=== PATIENT | female | born 1940 | race Caucasian/White ===

== ENCOUNTER 2017-04-09 16:42 | Inpatient (IN) | payer MEDICARE, OTHER ==
[~2017-04-09] VITALS: Ht 147.3 cm; Wt 71.2 kg
--- NOTE | ~2017-04-09 | CON ---
[place], [place] REPORT OF CONSULTATION NAME: CHIRAG DOMINGO [facility] #: [id number] UNIT #: [id number] ROOM: 309 DOCTOR: KINJAL CALVO ED.D (BARBARA) BIRTHDATE: [birth year] DOS: 04/10/2017 HISTORY OF PRESENT ILLNESS: The patient is a 76-year-old female referred by Dr. Marques for competency evaluation. At the present time, this patient is on the [facility]. She is a , her having approximately 17 years ago. She does have 1 son and 1 daughter. Her son, Chilo, is her durable power of trial attorney for healthcare. She has recently been a resident at [facility] in [place], [place]. ____ house physician at [facility] at the present time. Her medical history is pertinent for major neurocognitive disorder, GERD, hyperlipidemia, hypertension, diabetes mellitus, osteoarthritis, hypothyroidism, and depression. This patient has no significant substance abuse issues. She was awake, alert and oriented to the fact that she is in [place]. She did not know the name of the facility. She did not know what year it is, and stated it was 2021. She also stated that she was 72 years old. Her short and long-term memory are markedly impaired. I spoke at length with her daughter, Nicole Guy. According to the daughter, the patient has been having difficulty with dementia for several years. This was exacerbated when her medications were changed at [facility]. She was quite agitated at [facility] and became very aggressive. At the present time, she is not aggressive, but is still quite confused. In my opinion, this patient is clearly not competent to make informed healthcare decisions and all decisions should be made by her durable power of trial attorney for healthcare, who is her son. DIAGNOSES: 1. Major neurocognitive disorder, Alzheimer disease. 2. Major depressive disorder, recurrent. RECOMMENDATIONS: In my opinion, all decisions should be made by her healthcare power of trial attorney, her son, Chilo Domingo. Thank you very much for this consult. KINJAL CALVO ED.D CM:CONSTR:REPORT OF CONSULTATION 1608 04/10/17 2204 interface CLEMENTINE MARQUES MD
--- NOTE | ~2017-04-09 | PR ---
[place], [place] PROGRESS NOTE NAME: CHIRAG RODRIGUEZ UNIT #: [id number] ROOM: 309 DOCTOR: CRISS RODRIGUEZ,JENESN BIRTHDATE: [birth year] DOS: CHIEF COMPLAINT: "I don't feel good." SUBJECTIVE: The patient is seen this morning, sitting in dining area, did engage in small conversation, but did not make much sense. Still depressed and confused. Did tell that she slept okay last night did not eat her breakfast this morning. As per nurses report, she has not engaged in activities, but has been calmer. MENTAL STATUS EXAMINATION: The patient is alert, awake, oriented to person, not to place or time. Very poor eye contact, labile with blunted affect, is calmer this morning. No epi or hypomania and no overt psychosis. PLAN: The patient needs further stabilization, so we shall continue her medicines, continue her care and shall try to engage her in verma milieu as she is more stable. JENSEN KAHN MD CM:PNTRANS 1003 [id number] JENSEN KAHN MD 04/15/17 1342 interface
--- NOTE | ~2017-04-09 | PR ---
[place], [place] PROGRESS NOTE NAME: CHIRAG RODRIGUEZ UNIT #: [id number] ROOM: 309 DOCTOR: DISHA AMAYA,MY BIRTHDATE: [birth year] DOS: 04/13/2017 CHIEF COMPLAINT: "I feel sick." SUMMARY OF THE VISIT: The patient was interviewed in the dining area where she was having breakfast. Said she feels sick and did not sleep well last night; however, she had 10 plus hours sleep per her RN. According to staff, her mood appears more depressed since yesterday afternoon, increasingly isolating herself, although she participated in the group milieu. No acute overnight events reported. MENTAL STATUS: The patient was alert and oriented to self and not to time. The patient was confused. She did not respond much to questions today. Mood moderately depressed and barely responds to any questions today. Short-term memory was poor. There is no evidence of delusion or hallucination. PLAN: We will continue Aricept 10 mg daily. We will increase Namenda to 10 mg b.i.d. We will also renew Ativan p.r.n. We will continue to attend patient in individual and group activity with the ultimate plan is to be discharged once she is psychiatrically stable. MY DO DISHA CLEMENTINE MARQUES MD CM:PNTRANS [id number] TONIO GAUTHIER DO 04/13/17 1321 interface
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
--- NOTE | ~2017-04-09 | PR ---
[place], [place] PROGRESS NOTE NAME: CHIRAG RODRIGUEZ UNIT #: [id number] ROOM: 309 DOCTOR: CLEMENTINE MARQUES MD BIRTHDATE: [birth year] DOS: 04/16/2017 CHIEF COMPLAINT: "I know I should eat, I am just not hungry." SUMMARY OF THE VISIT: The patient was interviewed as she sat eating or not eating her breakfast. She had her entire breakfast tray in front of her. She was just moving it around on the plate. She reports that she slept well, but is just not hungry. She is willing to try a milkshake at least for something in between meals. Mood does seem to be still depressed and affect is rather flat and blunted. She lacks energy and motivation. MENTAL STATUS: She is alert and oriented to person, possibly place, although it is doubtful, certainly not time. Mood does seem to be depressed. Affect is flat, blunted with a constricted range. There are no symptoms of hypomania or epi. There are no overt auditory or visual hallucinations, delusions or paranoia. Short-term memory is exceedingly poor. PLAN: I will go ahead and discontinue her Trintellix because in some cases this will actually decrease appetite. Instead, I will start her on Remeron 15 mg at bedtime, not only to impact positively on her appetite, but to combat the depressive symptomatology. I will renew her Ativan in case she requires p.r.n. intervention and order Ensure milk shakes to augment her nutritional status. Engage in individual and verma milieu activity with the ultimate plan to return back to her long-term care facility when stable. CLEMENTINE MARQUES MD CM:PNTRANS 5 5 CLEMENTINE MARQUES MD 04/16/17926 interface
--- NOTE | ~2017-04-09 | PR ---
[place], [place] PROGRESS NOTE NAME: CHIRAG RODRIGUEZ UNIT #: [id number] ROOM: 309 DOCTOR: DISHA AMAYA,MY BIRTHDATE: [birth year] DOS: 04/12/2017 CHIEF COMPLAINT: "Feels disgusted." SUMMARY OF THE VISIT: The patient was interviewed in her room. Said she feels disgusted because of her knee pain. She does not remember if there was any trauma or injury to the area. Dr. Urban also was in yesterday to see her related to right knee pain, on 04/11/2017. The patient also complains of "funny feeling at inferior chest, epigastric region." The patient is unable to provide details but said it could feel like nausea and fluttering. Said she has been here since Sunday, which is true. pause where she was asked questions and at times she would repeat questions again without providing any answers even after multiple attempts. Today, speaks in more complete sentences. MENTAL STATUS: The patient was alert and oriented to self, and time to certain extent. The patient was confused. Her responses were still fragmented at times with multiple pauses but her sentences were more completed. She has difficulty processing information still but shows some improvement. Short-time memory was poor. PLAN: Continue Aricept 10 mg every day, increase Namenda to 10 mg in the morning and 5 at night. We will continue to attempt to engage the patient in individual and verma milieu activities with the ultimate plan is to be discharge when the patient is more psychiatrically stable. MY GAUTHIER, DO CLEMENTINE MARQUES MD CM:PNLEROY 1103 [id number] MY DISHA DO 04/12/17 1236 interface
--- NOTE | ~2017-04-09 | PR ---
[place], [place] PROGRESS NOTE NAME: CHIRAG RODRIGUEZ UNIT #: [id number] ROOM: 309 DOCTOR: DISHA AMAYA,MY BIRTHDATE: [birth year] DOS: 04/11/2017 CHIEF COMPLAINT: "Good morning." SUMMARY OF THE VISIT: The patient was interviewed in the dining room while having breakfast. Said she slept well. Does not remember how long she has been here. Her response is slow with multiple long pauses, yet still not responds to questions asked of her most of the time. The patient did attend group as well as participated yesterday. The patient showed no signs of agitation or anger since yesterday. She was talkative, laughing and smiling throughout the group per staff record. MENTAL STATUS: The patient was alert and oriented to self, not to time. The patient was pleasantly confused. Her responses were still short and fragmented with long pauses. She showed great difficulty processing information even with just simple conversation. Short-term memory was extremely poor. PLAN: Increase Aricept to 10 mg daily from 5 mg. Increase Namenda to 5 mg b.i.d. We will continue to engage the patient in individual and verma milieu activity with the ultimate plan is to be discharged when she is psychiatrically stable. MY DO DISHA CLEMENTINE MARQUES MD CM:PNLEROY TONIO GAUTHIER DO 04/12/17 0739 interface
--- NOTE | ~2017-04-09 | CON ---
[place], [place] REPORT OF CONSULTATION NAME: CHIRAG RODRIGUEZ UNIT #: [id number] ROOM: 309 DOCTOR: ROSE MARY RODRIGUEZ,NING BIRTHDATE: [birth year] DOS: 04/17/2017 RAPID RESPONSE REPORT. Rapid response was called because of the patient was unresponsive and not interacting. The staff at the facility stated that the patient was actually fine until about 45 minutes before they found her unresponsive. She was admitted to the hospital Behavior Unit on the 09 of April with a brief psychotic episode. The nurses reported to me that she was cooperative, but in the last few days, had been eating less and not interacting. They also stated that she was in the dining room and then went back to her bedroom and it was then that they found her unresponsive. There had been no recent history of cough, congestion, difficulty with breathing, complaints of chest pain. No nausea or vomiting. In reviewing the admission data, she was known to have hypothyroidism, major depressive disorder, hiatal hernia, hyperlipidemia, osteoarthritis, and D deficiency. She also has a history of gastroesophageal reflux, hypertension, non-insulin dependent diabetes and recurrent anxiety. I see no history of cognitive difficulties and in reviewing the data report on this patient except for some bizarre thoughts and speech, she seemed to comprehend instructions and knew the staff. The nurse that was at the bedside was not able to give any further information. On examination, when I asked the patient to open her eyes, she opened her eyes. I noticed a subtle right facial droop. Her skin was warm and dry, but she was slightly cyanotic and was ventilating poorly. PHYSICAL EXAMINATION: VITAL SIGNS: The vital signs last taken last evening showed the temperature to be 97.9, pulse 65, respirations 18, and blood pressure 116/72. HEENT: There was no gaze preference and patient was nonverbal. NECK: Supple, No adenopathy or thyromegaly appreciated. CHEST: Symmetrical and nontender. LUNGS: Clear to auscultation and percussion. CARDIOVASCULAR: Regular and rhythmic. No murmurs, gallops, rubs or clicks appreciated. ABDOMEN: Slightly rounded, soft, nontender. Bowel sounds present in all 4 quadrants. No masses, no organomegaly. EXTREMITIES: Mild edema. CENTRAL NERVOUS SYSTEM: In examination of the nervous system, there was mild right facial weakness. The muscle tone in the lower extremities appeared to be slightly increased. Plantar reflexes equivocal on the left but downgoing on the right. The reason for the unresponsive state was suspicious for an intracranial event, dehydration, reaction to medication. I discussed with the resident staff that the patient be transferred to the ICU, a stat brain scan be obtained to rule out an acute stroke, EKG, stat electrolytes, cardiac enzymes, drug screen, CBC, and supportive care until those results could be obtained. There was no change in her status when she was moved to the ICU. ASSESSMENT: Unresponsive, consider acute neurological event. The 12-lead EKG [place], [place] REPORT OF CONSULTATION NAME: CHIRAG RODRIGUEZ UNIT #: [id number] ROOM: [facility] DOCTOR: NING BAZZI MD BIRTHDATE: [birth year] did not show any acute changes suggestive of acute myocardial infarction. PLAN: The patient will be transferred to the ICU to the hospitalist service and ongoing evaluation is in progress. Condition is guarded and the family should be notified by the resident staff. NING BAZZI MD CM:CONSTR:REPORT OF CONSULTATION 1125 04/17/17 1208 interface
--- NOTE | ~2017-04-09 | PR ---
[place], [place] PROGRESS NOTE NAME: [id number] #: [id number] ROOM: 309 DOCTOR: CRISS RODRIGUEZ,JENSEN BIRTHDATE: [birth year] DOS: 04/14/2017 CHIEF COMPLAINT: "I feel shaky." SUBJECTIVE: The patient is a 76-year-old lady, resident of [facility], admitted here because of increasing combativeness, agitation, self-injurious behavior and also depression with confusion and psychosis. She started on Aricept, Namenda, Depakote. Her behavior has improved, is seen today sitting in dining area, could not hold any meaningful conversation. She could not tell where she is or what day it is, seemed confused and did not want to continue the conversation and dozed off and closed her eyes. As per nurses report, she has slept okay last night, did not eat much of her breakfast and appears to be depressed and confused. MENTAL STATUS EXAMINATION: The patient is oriented to self only, not to place or time, still confused. Poor eye contact. Speech, low tone. Mood depressed with flat affect. No overt psychosis, no epi or hypomania. Short term memory is very poor. PLAN: The patient needs further stabilization. At present, we shall continue her medicines and add Trintellix 10 mg and risperidone 0.25 mg b.i.d. to help her mood and confusion and we shall try and engage her in verma milieu as she is more stable. JENSEN KAHN MD CM:PNTRANS 0940 [id number] JENSEN KAHN MD 04/14/17 1547 interface
[2017-04-09] MEDS ORDERED: CYMBALTA60 MG PO (18:01)
[2017-04-09] MEDS ORDERED: BISCOLAX10 M1 R (18:01)
[2017-04-09] MEDS ORDERED: ATIVAN0.5 MG PO (18:01)
[2017-04-09] MEDS ORDERED: CYMBALTA30 MG PO (18:02)
[2017-04-09] MEDS ORDERED: GLUCOPHAGE500 MG PO (18:02)
[2017-04-09] MEDS ORDERED: LEVOXYL88 MCG PO (18:02)
[2017-04-09] MEDS ORDERED: ZESTRIL20 MG PO (18:03)
[2017-04-09] MEDS ORDERED: OMEPRAZOLE40 MG PO (18:03)
[2017-04-09] MEDS ORDERED: TOPROL XL100 MG PO (18:03)
[2017-04-09] MEDS ORDERED: VITAMIN D50000 UNIT PO (18:04)
--- NOTE | 2017-04-09 20:10 | NUR ---
CHIRAG RODRIGUEZ a 76 year old F admitted via ambulance from the ADMITTING as a emergency 72 hr. hold admission. Arrived on unit at 2010PM. ALLERGIES: METFORMAN, AVANDIA, AND BENICAR. Vital signs are: 97.8-63-20 138/76. CLIENT IS PINK SLIPPED SO SHE DID NOT SIGN ADMISSION PAPER The client signed the following forms with stated understanding: Authorization For The Release of Medical Information, Clothing List, Consent and Release Forms/Receipt of Rights, Acknowledgement of Advance Directive Information, Behavioral Health Consent Form, and Informed Consent of Medications. Admitted under the services [facility] A search was conducted and hazardous articles were removed. Client was oriented to the unit. BECKY GONZALEZ
[2017-04-09 22:30] VITALS: BP 138/76
--- NOTE | 2017-04-10 00:23 | NUR ---
DR BREWER NOTIFIED OF ADMISSION. FULL UPDATE PROVIDED
--- NOTE | 2017-04-10 02:50 | NUR ---
REFUSED MIDNIGHT MEDICATION.. APPEARS TO BE RESTING QUIET UNLESS DISTURBED TO TURN OR GET PO FLUIDS. IV FLUIDS INFUSING WITHOUT DIFFICULTY
--- NOTE | 2017-04-10 05:38 | NUR ---
24 HR chart check completed.
--- NOTE | 2017-04-10 06:24 | NUR ---
INCONTINENT OF LARGE AMOUNT OF URINE. CLEANED UP AND GOWN CHANGED. CLIENT VERY CONFUSED AND DISORIENTED ABOUT EVENTS LAST NIGHT. REVIEWED EVENTS BUT SHOWING SIGNS OF SHORT TERM MEMORY DEFICIT. UNABLE TO ANSWER HER AGE OR YEAR. KEEPS REPEATING "DADDY IS GOING TO BE SO UPSET". EMOTIONAL SUPPORT PROVIDED.
--- NOTE | 2017-04-10 06:48 | NUR ---
PT HAS BEEN OBSERVED ON Q 15 MIN CHECKS & HAS SLEPT QUIETLY THROUGHOUT THE SHIFT PAST 0030. WAS AWAKE THIS AM @ 0625 & WAS INCONTINENT OF A LARGE AMOUNT OF URINE. COMPLIANT WITH TAKING AM MEDICATIONS WHOLE. PT STATED, "WHATS GOING ON? THIS AIN'T ME". SHORT & NURSING HOME MEMORY DEFICITS, ALERT TO PERSON ONLY. ALSO STATED "MY DADDY IS GONNA BE SO UPSET". PT UNABLE TO STATE HER AGE OR IF HER FATHER WAS ALIVE OR . SHE HAD STATED ON ADMISSION THAT HER PARENTS WERE . CONFUSION PRESENT & PT EXHIBITS A PUZZLED LOOK ON HER FACE.
[2017-04-10 07:57] VITALS: BP 140/50
[2017-04-10 08:04] LABS: BASO % 0.7 % (0.0-1.0); EOS # 0.1 10*3/uL (0.0-0.4); EOS % 1.4 % (1.0-4.0); HEMATOCRIT 34.7 % (37.0-47.0); HEMOGLOBIN 11.4 g/dl (12.0-16.0); LYMPH # 1.3 10*3/uL (1.3-4.4); LYMPH % 23.8 % (27.0-41.0); MEAN CELL VOLUME 87.4 fl (81.0-99.0); MEAN CORPUSCULAR HGB 28.7 pg (27.0-31.0); MEAN CORPUSCULAR HGB CONC 32.9 g/dl (33.0-37.0); MONO # 0.6 10*3/uL (0.1-1.0); MONO % 10.1 % (3.0-9.0); NEUT # 3.6 10*3/uL (2.3-7.9); NEUT % 63.6 % (47.0-73.0); PLATELET COUNT AUTOMATED 208 10*3/uL (130-400); RED BLOOD COUNT 3.97 10*6/uL (4.10-5.10); RED CELL DISTRI WIDTH 13.4 % (0-14.5); WHITE BLOOD COUNT 5.6 10*3/uL (4.8-10.8)
--- NOTE | 2017-04-10 08:25 | NUR ---
PHYSICAL THERAPY Nursing screen received. Orders received as well. Thank you. Nori Farah,PT
[2017-04-10 08:35] LABS: ALBUMIN 3.4 gm/dl (3.1-4.5); ALKALINE PHOSPHATASE 85 U/L (45-117); BUN 12 mg/dl (7-24); CHLORIDE 107 mmol/L (98-107); CHOLESTEROL 153 mg/dL (<200); CREATININE 0.66 mg/dL (0.55-1.02); HDL CHOLESTEROL 76 mg/dl (40-60); LDL CHOLESTEROL 66 mg/dL (9-159); POTASSIUM 4.2 mmol/L (3.5-5.1); SGOT/AST 12 IU/L (3-35); SGPT/ALT 14 U/L (12-78); SODIUM 144 mmol/L (136-145); TOTAL PROTEIN 6.7 gm/dL (6.4-8.2); TRIGLYCERIDES 53 mg/dl (<150); VLDL CHOLESTEROL 11 mg/dL (6-40)
[2017-04-10 09:23] LABS: VITAMIN D, 25-HYDROXY 25.3 ng/mL (30-100)
[2017-04-10 09:34] LABS: BILIRUBIN NEGATIVE (NEGATIVE); BLOOD TRACE-LYSED (NEGATIVE); CLARITY CLEAR (CLEAR); COLOR YELLOW (YELLOW); GLUCOSE NEGATIVE (NEGATIVE); KETONE NEGATIVE (NEGATIVE); LEUKO ESTERASE TRACE (NEGATIVE); NITRITE NEGATIVE (NEGATIVE); SPECIFIC GRAVITY <= 1.005 (1.005-1.030); UROBILINOGEN 0.2 E.U./dl (0.2-1.0)
--- NOTE | 2017-04-10 10:03 | NUR ---
TREATMENT TEAM WAS HELD WITH THE FOLLOWING: DR. MARQUES, SHIRT FINISHER,RN,AT,SW. DR. MARQUES WOULD LIKE PT TO SEE DR. CALVO FOR COMPOTENCY EVAL AND GUARDIANSHIP APPLICATION.
--- NOTE | 2017-04-10 10:36 | NUR ---
PT RIGHT KNEE IS SWOLLEN, RED, WARM TO THE TOUCH, PT C/O PAIN IN THE KNEE, PT HAD A PREVIOUS FALL HAS BRUISING. NOTIFED DR LAY
--- NOTE | 2017-04-10 10:37 | NUR ---
SHASHI SPOKE WITH SHASHI HEAD AT [facility]. PT IS IN THE ASSISTED LIVING. FAMILY VERY INVOLVED IN HER CARE. DTR YOHANNES FLOREZ [phone] AND SON EVELINA RODRIGUEZ [phone]. SHASHI EXPLAIN THAT DR MARQUES ORDERED COMPOTENCY EVAL WITH DR. CALVO FOR GUARDIANSHIP. SHASHI RIOS LET DR. MARQUES KNOW THAT THERE IS FAMILY INVOLVEMENT. SHASHI WILL FAX AN UPDATE.
--- NOTE | 2017-04-10 10:41 | NUR ---
PRN 1 MG PO ATIVAN GIVEN, PT IS WRINGING HER HANDS, C/O ANXIETY, NERVOUS SHAKING, PT TOOK WITH NO PROBLEM
--- NOTE | 2017-04-10 10:50 | NUR ---
NOTIFIED DR CALVO OFFICE OF CONSULT
[2017-04-10 11:05] LABS: BACTERIA 1+; EPITHELIAL CELLS 15-20; WBC 16-20 wbc/hpf (0-5)
--- NOTE | 2017-04-10 11:13 | NUR ---
Goals,Exercise,& [place] [employer] Patient attended group today but did not paticipate. Patient was the only one attending and told me she was very nervous and anxious. Patient did not want to do any of the planned activities,she just wanted to talk. Patient and I did deep breathing exercises several times to help her to calm down. Patient wanted to get dressed and lay down for a while. As there was no one available I took patient to her room with the assistance of her nurse,washed and dressed and put her to bed to rest. Patient seemed calmer and less anxious
--- NOTE | 2017-04-10 11:27 | NUR ---
SW completed psychosocial assessment with Pt. Pt wants to return home to [facility].
--- NOTE | 2017-04-10 13:40 | NUR ---
ACTIVITIES BROUGHT OUT A PIECE OF THE PATIENTS TOOTH THE PATIENT SPIT OUT A PICE OF HER TOOTH. IT WAS PLACED IN A BAGGIE PUT IN THE PATIENTS BELONGINS
--- NOTE | 2017-04-10 14:55 | NUR ---
PHYSICAL THERAPY PAtient at group at this time. Thank you for this referral. Nori Farah,PT
--- NOTE | 2017-04-10 15:47 | NUR ---
PHYSICAL THERAPY PAtient evaluated on 3, full evaluatiomn to follow. Continue with PT as per plan of care with fall, right knee eccymosis, errythemia amd edema, unit three and recent change in mental status precautions. May require SNF for d/c planning, pending prior level of function. PAtient is moderate complexity via chart review, tests and evaluation: 99652. Thank you for this referral. Nori Farah,PT
--- NOTE | 2017-04-10 16:37 | NUR ---
NOTIFIED DR SINGLETARY OF PT RESULTS OF MRI
--- NOTE | 2017-04-10 17:02 | NUR ---
NOTIFIED DR SINGLETARY OF PT BLOOD CULTURE RESULTS FROM [facility]- PT HAS STAPHYLOCOCCUS SPECIES NOT S. AUREUS,. ANOTHER CULTURE IS BEING ORDERED INCASE THIS CULTURE WAS CONTAMINATED
[2017-04-10 20:00] VITALS: BP 118/63
--- NOTE | 2017-04-10 23:03 | NUR ---
24 HR chart check completed.
--- NOTE | 2017-04-11 05:46 | NUR ---
PT HAS BEEN OBSERVED ON Q 15 MIN CHECKS & HAS SLEPT QUIETLY THROUGHOUT THE SHIFT PAST 2144.
[2017-04-11 07:30] VITALS: BP 108/81
--- NOTE | 2017-04-11 07:36 | NUR ---
04/10/17 Afternoon Reminiscing/[place] [employer] Patient did attend group as well as participated. Patient was pleasant, but confused. Patient showed no signs of agitation or anger. Patient was talkative,laughing and smiling throughout group
--- NOTE | 2017-04-11 08:22 | NUR ---
PHYSICAL THERAPY Danay seen this AM 1:1 for her therapy session, Pt was supine in bed. Pt having right knee edema. Start with gentle rom and Ex to bilateral LE with cueing and is very slow with this and just work to tolerance this my first time. Transfer supine/sit MOD A X 1, sitting balance CGA X 1, X 6 min. Then sit/stand and up on wheeled walker standing balance MOD A X 1. Gait 45' X 1, one sitting rest. Followed by another gait with W/W 25' X 1, with much verbal cueing for gait, walker, turn safety, Pt is confused. Danay did well this her first time with me. Pt taken down to the day room for breakfast at this time in her wheelchair and body alarm on. ALEXSANDRA ADAMES MUSEUM EXHIBIT TECHNICIAN.
[2017-04-11 08:24] VITALS: BP 110/64
[2017-04-11 10:58] VITALS: BP 133/57
--- NOTE | 2017-04-11 11:14 | NUR ---
TREATMENT TEAM WAS HELD WITH THE FOLLOWING: DR. MARQUES, RESIDENT, RN, AT,AND SW. SW REPORTED THAT PT IS IN ASSISTED LIVING AT [facility]. FACILITY WILLING TO TAKE HER BACK. SON AND DTR ARE INVOLVED WITH HER CARE. DR. CALVO DEEMED PT INCOMPOTENT. DR. PORTILLO WANTS GUARDIANSHIP FILED FIRST THEN CIVIL COMMITTMENT IF NEEDED.
--- NOTE | 2017-04-11 11:50 | NUR ---
Goals,Exercise & [place] Patient was in attendence for group but did not participate. Patient complained of not feeling well and nurse was notified. Patient was taken from the room when DR came to see her.
--- NOTE | 2017-04-11 12:51 | NUR ---
Danay is alert to person only when assessed this morning. She does later acknowledge that she knows that she is in the hospital. Noted to exhibit some hesitancy in her responses to questions asked by staff. When assessed this morning her right hand was noted to be reddened and warm to touch. She reports that "it feels funny." N.P notified of Danay's complaints. Danay later voiced c/o chest and epigastric discomfort which she rated as an "8." N.P was notified and did come to the unit to evaluate her. Orders received. Danay was initially hesitant to complete testing, but did comply with encouragement and education provided by staff. Noted to be anxious @ times and support has been provided. Energy level is low. Appetite is fair. Exhibits some difficulty with processing information. Daughter, Nicole, did telephone the unit to inquire regarding her mother's condition and was updated on current medications. After testing completed Danay did request to rest in bed in her room. Refer to [facility] flowsheet for specific monitoring. Also refer to process intervention screen for vital signs recorded on this day. No overt s/s of sensory disturbances noted. Memory impairment present.
--- NOTE | 2017-04-11 17:44 | NUR ---
Dr. Urban also in to see Danay related to right knee injury she previously received. She discussed treatment option with Danay, however, @ this time Danay voices ambivalent feelings regarding this. Noted to exhibit some anxiousness @ mealtime and voiced some paranoid delusions regarding coming to the hospital. States that she does not remember events @ longterm and stated, "Those people are lying. This is bad."
[2017-04-11 19:59] VITALS: BP 142/64
--- NOTE | 2017-04-11 21:49 | NUR ---
PT HAS REMAINED IN BED SINCE THE ONSET OF THE SHIFT. VOICED NO PHYSICAL COMPLAINTS. DENIED ANY FURTHER PAIN. COMPLIANT WITH HS MEDICATIONS CRUSHED & MIXED WITH APPLESAUCE. CONFUSION CONTINUES. ALERT TO PERSON ONLY. PT STATED, "WHATEVER HAPPENED?........THIS IS TERRIBLE.................HAVE YOU SEEN MY ?.............IS MOM HERE?............OH I JUST REMEMBERED, SHES '. HAS REMAINED IN HER ROOM IN HER BED THIS EVENING RESTING QUIETLY.
--- NOTE | 2017-04-11 21:56 | NUR ---
24 HR chart check completed.
--- NOTE | 2017-04-11 22:27 | NUR ---
24 HR chart check completed.
--- NOTE | 2017-04-12 06:54 | NUR ---
PT HAS BEEN OBSERVED ON Q 15 MIN CHECKS & HAS REMAINED IN BED SINCE THE ONSET OF THE SHIFT. HAS SLEPT QUIETLY THROUGHOUT THE SHIFT PAST 1999 WITH 2 BRIEF AWAKENINGS DUE TO BEING INCONTINENT OF URINE.
[2017-04-12 08:31] VITALS: BP 143/68
--- NOTE | 2017-04-12 10:33 | NUR ---
SHASHI SPOKE WITH DTR YOHANNES ABOUT [facility]. BROTHER CHITO HAS [facility] THAT WAS DRAWN UP BY AN ATTRONEY. YOHANNES WILL GET A COY FROM HER BROTHER AND HAVE [employer] FAX IT TO SHASHI BY 4:17PM. YOHANNES AND CHITO WANT PT TO COMPLETE HER TREATMENT BEFORE HEADING BACK TO [facility].
--- NOTE | 2017-04-12 10:36 | NUR ---
SHASHI SPOKE WITH ADILENE AT [facility] TO MAKE SURE THAT FACILITY [facility] HAVE A COPY OF [facility]. ADILENE DOES NOT HAVE COPY. WHILE SHASHI WAS WAS ON HOLD, YOHANNES CALLED AND STATED THAT SHE SPOKE WITH HER BROTHER AND IS GOING TO HIS HOUSE TO GET ADN WILL HAV FACILITY FAX IT TO [facility]. SHASHI INFORMED ADILENE THAT YOHANNES WAS GETTTING DPOA[facility] FROM CHITO'S HOUSE AND BRINGING IT TO FACILITY TO FAX IT TO US. ADILENE DID CHITOT HAVE A COY AND WILL FAX IT TO FACILITY WHEN SHE RECEIVES IT.
--- NOTE | 2017-04-12 12:02 | NUR ---
PHYSICAL THERAPY Patient was supine in bed this am when approached by therapist and reports moderate chest / sternal area pain, possibly heartburn most of the morning. Upon consult with floor nurse, this c/o was previously reported to nursing and told it was a case of heartburn. Patient declined therapist request for gait and did not want to get out of bed due to pain. Patient agreed to and performed supine B LE therex, all planes x 10 reps each including ankley pumps, requiring v/c to complete all ex with focus on task. Patient remained supine in bed with body alarm intact for safety and will continue per POC as tolerated. Total treatemnt time 12 minutes. Olu Candelaria, HEAD MECHANIC
--- NOTE | 2017-04-12 12:42 | NUR ---
04/11/17 Afternoon Patient did not attend group. Patient was stating she did not feel well and did not want to participate.
--- NOTE | 2017-04-12 12:53 | NUR ---
Goals,Exercise and Crafts for the tree Patient was in attendence for a short time,refused to make a goal for today. Patient just kept saying "I cant I'm sick." when encouraged to joing group. Patient wanted to lay down so was taken to her room
--- NOTE | 2017-04-12 14:47 | NUR ---
Mood is depressed. Anxiety level is moderate. Noted to be come more anxious when staff discusses treatment issues. On 1:1 interaction she expresses some paranoid ideas about being "in trouble." She is unable to recall events precipitating her admission and reports that she did "not fall." Confusion is noted, however, she is is oriented to self and place, but not to time. Daughter, Nicole, did telephone the unit to inquire regarding Danay's condition. We reviewed current medications and discussed Dr. Urban's visit of yesterday. Daughter is agreeable to physical therapy, however, she does not want Danay to have any cortisone injections @ this time. Danay is voicing some c/o epigastric discomfort and is unreceptive to education provided by staff @ this time. Limited understanding due to confusion. No agitation has been exhibited. Requesting to lie in bed in her room @ intervals. No violent outbursts noted. Fretful and fearful @ times and support has been provided. Refer to [facility] flowsheet for specific monitoring throughout the day.
--- NOTE | 2017-04-12 15:29 | NUR ---
SW ATTEMPTED TO COMPLETE 1:1 BUT PT WAS SLEEPING AND UNABLE TO AROUSE.
--- NOTE | 2017-04-12 15:45 | NUR ---
SHASHI CALLED ADILENE DONALD TO INFORM THAT DTR WAS BRINGING [facility] TO FACILITY TO FAX TO UNIT. SHASHI GAVE FAX NUMBER. ADILENE WILL FAX IT ONCE SHE RECEIVES IT.
--- NOTE | 2017-04-12 15:47 | NUR ---
SHASHI RECEIVED CALL FROM DTR YOHANNES TO MAKE SURE [facility] FPR RECEIVED. SHASHI. INFORMED THATGhada HEAD WAS AT LUNCH. SHASHI HAS NOT RECEIVED PAPERS YET. MELANY SENT A TEXT WITH TAYLA. YOHANNES AND CHITO GOLDBERG PT TO COMPLETE HER TREATMENTAND AGREED TO PT'S ADMISSION TO THE UNIT.
--- NOTE | 2017-04-12 15:49 | NUR ---
SW WAS INFORMED BY MANAGER SKILLED THAT DPO[facility] WAS RECEIVED. SW ASKED HER TO INFORM NURSE.
--- NOTE | 2017-04-12 16:50 | NUR ---
DEPAKOTE CHANGED TO SPRINKLES PER DR. MARQUES.
[2017-04-12 21:38] VITALS: BP 120/87
--- NOTE | 2017-04-12 23:30 | NUR ---
PT MEDICATION COMPLIANT WITH NO DIFFICULTIES. ISOLATIVE TO ROOM. CONFUSED. ALERT TO PERSON ONLY. DEPRESSED MOOD. NO SOMATIC COMPLAINTS AT THIS TIME. NO S/S OF DISTRESS NOTED. NO C/O PAIN. NO HALLUCINATIONS OR DELUSIONS NOTED. Q15 MINUTE SAFETY CHECKS MAINTAINED. FALL PRECAUTIONS MAINTAINED. NO SCREAMING OR PARANOIA NOTED. NO BIZARRE STATMENTS MADE.SEE [facility] FLOWSHEETS FOR SPECIFIC MONITORING.
--- NOTE | 2017-04-13 02:48 | NUR ---
24 HR chart check completed.
--- NOTE | 2017-04-13 06:48 | NUR ---
PT SLEPT APPROXIMATELY 10 HOURS THIS SHIFT. NO S/S OF DISTRESS NOTED. NO C/O PAIN.
[2017-04-13 08:04] VITALS: BP 132/78
--- NOTE | 2017-04-13 08:37 | NUR ---
PHYSICAL THERAPY Danay was seen this AM 1:1 for her therapy session, Pt was up in the day room in her wheelchair. Talked Danay into her gait and said that she was having "ghest heartburn pain" which nursing knows about. Transfer sit/stand and up on wheeled walker, standing balance MOD A X 1, with cueing to stand. Gait total 28' X 1, W/W and MOD INSTALLATION DRAFTER X 1, with Danay wanting to quit at this time. Pt up in the day room for her breakfast but said that she did not want to eat. ALEXSANDRA ADAMES ASSET ANALYST.
--- NOTE | 2017-04-13 08:38 | NUR ---
04/12/17 Afternoon group Suncatchers for demond tree Patient did not attend group. Patient was not feeling well and went to her room to rest
--- NOTE | 2017-04-13 11:20 | NUR ---
Enevate goals and remenissing Patient present in activity room throughout group however displays limited participation. Patient able to state daily goal with assistance. Patient requires frequent redirection towards task due to perseverating on not feeling well. Patient reports no anger however displays aggition towards not feeling well. Attempts to refocus patient on activity was unsuccessful.
--- NOTE | 2017-04-13 12:02 | NUR ---
PT REMOVED FROM DINING ROOM REFUSING LUNCH AND BEING DISRUPTIVE. PT SCREAMING "I'M SICK, I'M SICK I'M GOING TO , I CANT TAKE THIS". 1-1 PROVIDED PT UNRECEPTIVE TO 1-1, UNABLE TO REDIRECT. PT ATTEMPTING TO TIP WHEEL CHAIR. WHEN REPOSITIONED PT THEN PULLED LEGS UP AND TO LEFT. PT TAKEN TO BE LAID DOWN.
--- NOTE | 2017-04-13 13:37 | NUR ---
24 HR chart check completed.
--- NOTE | 2017-04-13 14:19 | NUR ---
Wreaths for the tree and conversation Patient did not attend group this afternoon. Patient refused when encouraged to come to group. Patient was in bed when AC spoke with patient who seemed agitated when approched. Patient stated "I can't because Im sick." AC explained to patient coming to group is enjoyable and a benefit to helping her get better. Patient stated "It won't help me because I'm sick." Ac reminded her she was welcome to come join at any time
--- NOTE | 2017-04-13 17:45 | NUR ---
PT MED COMPLIANT WITH MUCH COAXING, CONTINUES TO VOICE SOMATIC COMPLAINTS, TEARFULL, AND FEARFULL THAT SHE WILL . PT REFUSING TO EAT LUNCH AND A POOR APPETITE OF 25% OF BREAKFAST AND SUPPER. PT UNRECEPTIVE TO MED EDUCATION AT THIS TIME. SON AND DIL VISITING AT THIS TIME. COTNINUE TO ENCOURAGE PARTICIPATION IN GROUP, CONTINUE TO PRESENT REALITY AND REORIENT TO PLACE AND TIME. SEE FLOW SHEET FOR SPECIFIC MONITORING.
[2017-04-13 19:57] VITALS: BP 154/84
--- NOTE | 2017-04-13 20:04 | NUR ---
24 HR chart check completed.
--- NOTE | 2017-04-14 06:43 | NUR ---
PT SLEPT APPROXIMATELY 8 HOURS UNINTERRUPTED THIS SHIFT. NO HALLUCINATIONS OR DELUSIONS NOTED. INTERACTIVE WITH STAFF. ISOLATIVE TO ROOM. ANXIOUS WANTING TO GO HOME. CONFUSED. ALERT TO PERSON ONLY. FALL PRECAUTIONS AND Q15 MINUTE SAFETY CHECK MAINTAINED. NO SCREAMING NOTED THIS SHIFT. NO SOMATIC PAIN NOTED. NO S/S OF DISTRESS. NO C/O PAIN. SEE [facility] [[email or web address] FLOWSHEET FOR SPECIFIC MONITORING.
[2017-04-14 08:18] VITALS: BP 154/80
--- NOTE | 2017-04-14 09:11 | NUR ---
NEW VO RECEIVED FROM WRITTEN DOWN, READ BACK, AND CARRIED OUT.
--- NOTE | 2017-04-14 10:44 | NUR ---
DR LARSON ON UNIT TO SEE PATIENT
--- NOTE | 2017-04-14 18:06 | NUR ---
PATIENT ALERT TO PERSON. PATIENT WITH LT/ST DEFICITS. THOUGHT PROCESS CONFUSED. RESPIRATION NONLABORED. NO DISTRESS. CONTINUES ON SEPTRA FOR UTI. NO ADVERSE REACTION. PATIENT ISOLATIVE, WITHDRAWN, RESTLESS, AND TEARFUL AT TIMES. PATIENT IN WHEELCHAIR ON UNIT. CONTINENT AND INCONTINENT OF BOWEL AND BLADDER. POOR APPETITE. MEDICATION COMPLIANT. SEE [facility] FLOW SHEET FOR SPECIFIC MONITORING. PATIENT REQUESTING TO LAY DOWN IN ROOM THROUGHOUT SHIFT STATING THAT SHE KNOWS SOMETHING IS WRONG WITH HER BUT SHE DOES NOT KNOW WHAT IT IS. PATIENT MOANING AT TIMES AND REDIRECTION EFFECTIVE AT THIS TIME. Q 15 MINUTE CHECKS MAINTAINED.
--- NOTE | 2017-04-14 18:17 | NUR ---
Shift chart check completed.
[2017-04-14 20:00] VITALS: BP 155/71
--- NOTE | 2017-04-14 23:37 | NUR ---
ALERT TO PERSON WITH CONFUSION NOTED. DEPRESSED MOOD AND WANTING TO ISOLATE SELF TO HER ROOM. NO HALLUCINATIONS OR DELUSIONS NOTED. MED COMPLIANT WITHOUT DIFFICULTY. CONSUMED 100% OF SNACK. CALM. NO DISTRESS NOTED. NO C/O PAIN. SEE [facility] FLOWSHEET FOR SPECIFIC MONITORING.
--- NOTE | 2017-04-15 04:23 | NUR ---
24 HR chart check completed.
--- NOTE | 2017-04-15 05:09 | NUR ---
PT SLEPT APPROXIMATELY 8 HOURS THIS SHIFT. NO S/S OF DISTRESS. NO C/O PAIN. MEDICATION COMPLIANT. NO SOMATIC COMPLAINTS NOTED. NO PARANOIA OR SCREAMING. NO BIZZARRE COMMENTS OR THREATENING STAFF OR PATIENTS. PT CALM AND WITHDRAWN WITH A SAD AFFECT. DEPRESSED MOOD. Q 15 MINUTE SAFETY CHECKS AND FALL PRECAUTIONS MAINTAINED. SEE [facility] FLOWSHEET FOR SPECIFIC MONITORING.
[2017-04-15 07:47] VITALS: BP 152/63
--- NOTE | 2017-04-15 10:00 | NUR ---
DR. LARSON ON UNIT TO SEE PATIENT.
--- NOTE | 2017-04-15 13:31 | NUR ---
PATIENT IS ALERT TO PERSON WITH CONFUSION, ABLE TO VOICE NEEDS. DENIES ANY HALLUCINATIONS, DELUSIONS, HI/SI OR PAIN. PATIENT STATES SHE IS DEPRESSED WITH ASKED. 1 PERSON ASSIST WITH ACTIVITIES OF DAILY LIVING. CONTINENT OF BOWEL AND BLADDER. CONTINUES ON ANTIBOTICS FOR UTI. ENCOURAGAING FLUID. Q 15 MINUTE SAFETY CHECKS MAINTAINED. CONTINUE TO MONITOR FOR AGGRESSION AND REDIRECT NEEDED. PATIENT'S FAMILY IN TO VISIT, EXPRESSING CONCERNS OF DECLINE AND NOT EATING/DRINKING. DR. GANT UPDATED ON CONCERNS AT THIS TIME.
[2017-04-15 15:50] LABS: BUN 25 mg/dl (7-24); CHLORIDE 101 mmol/L (98-107); CREATININE 0.94 mg/dL (0.55-1.02); SODIUM 135 mmol/L (136-145)
--- NOTE | 2017-04-15 16:07 | NUR ---
Shift chart check completed.
[2017-04-15 20:04] VITALS: BP 151/73
--- NOTE | 2017-04-16 00:11 | NUR ---
24 HR chart check completed.
--- NOTE | 2017-04-16 00:14 | NUR ---
PT REMAINED IN BED SINCE THE ONSET OF THE SHIFT. COMPLIANT WITH HS MEDICATTIONS CRUSHED & MIXED IN APPLESAUCE. REQUIRED MUCH ENCOURAGEMENT TO DRINK FLUIDS BUT DID DRINK 120 CC WATER & 120 CC APPLE JUICE. WAS INCONTINENT OF URINE BUT ALSO VOIDED ON THE TOILET TIMES 2. PT IS ALERT TO PERSON & THAT SHE IS IN THE HOSPITAL.
--- NOTE | 2017-04-16 06:02 | NUR ---
PT WAS ASSISTED TO THE BATHROOM & SAT IN A WHEELCHAIR. PT ASKED 2 STAFF TO PICK HER UP & PUT HER IN BED. PT REQUIRED MUCH PROMPTING & ENCOURAGEMENT TO GET IN BED BY HERSELF WITH STAFF BY HER SIDE FOR ASSISTANCE. AFTER APPROX 1/2 AN HOUR OF ENCOURAGEMENT, PT DID GET UP ON HER OWN WITH ASSISTANCE OF A WALKER & GOT INTO BED WITH STAFF BY HER SIDE FOR SAFETY. SHE HAS SLEPT PAST 2330.
[2017-04-16 07:36] VITALS: BP 150/72
--- NOTE | 2017-04-16 09:56 | NUR ---
PHYSICAL THERAPY Danay was seen this AM 1:1 and is confused. Transfer supine/sit with much verbal cue, pivot onto her commode with tow aids. After using her bathroom sit/stand from her wheeled with cueing and MAX/MOD A X 1. Gait with wheeled walker just 14' X 2, one sitting rest and just not wanting to gait at all. Gait with MOD/MAX A X 1. Pt wheeled up to the day room for her breakfast. ALEXSANDRA ADAMES PULLEY MAN.
--- NOTE | 2017-04-16 10:03 | NUR ---
SW met with Tx team, Dr. Rausch did not give d/c date at this time. Wants to see how she does over the next few days. D/C should be this week however, per Dr. Rausch.
--- NOTE | 2017-04-16 11:23 | NUR ---
OT evaluation completed at BS. OT at moderate complexity determined by evaluation and chart review.
--- NOTE | 2017-04-16 13:30 | NUR ---
Goals,Exercise & [place] Craft Patient was in attendence for group but did not participate. Patient stated she didn't feel well enough to participate. Spoke with patient several times to encourage her to participate but patient refused.
--- NOTE | 2017-04-16 15:11 | NUR ---
sW attempted to engage pt. pt. sat in wheelchair and looked at SW then put her head back down. pt was murmuring something quietly but did not engage SW.
[2017-04-16 21:22] VITALS: BP 116/72
--- NOTE | 2017-04-16 22:04 | NUR ---
24 HR chart check completed.
--- NOTE | 2017-04-17 00:35 | NUR ---
PT HAS REMAINED IN HER ROOM SINCE THE ONSET OF THE SHIFT. ALERT TO PERSON. QUIET INTERACTIONS. COMPLIANT TAKING HS MEDICATIONS CRUSHED & MIXED IN APPLESAUCE. DRINKS FLUIDS FROM A CUP WITH A STRAW BUT REQUIRES MUCH PROMPTING & REMINDERS. NO PHYSICAL COMPLIANTS VOICED.
--- NOTE | 2017-04-17 06:15 | NUR ---
PT HAS BEEN OBSERVED ON Q 15 MIN CHECKS & HAS SLEPT QUIELTY THROUGHOUT THE SHIFT. ALERT DURING HANDS ON CARE. INCONTINENT OF URINE. 2 PERSON TRANSFER WITH LITTLE ASSIST FROM PT. PT ASSISTED TO DINING ROOM & SITTING IN A WHEELCHAIR.
--- NOTE | 2017-04-17 06:53 | NUR ---
NOTIFIED DAUGHTER, YOHANNES WHITE, THAT PT HAD A CHANGE IN MENTAL STATUS & WAS BEING TRANSFERRED TO ICU.
--- NOTE | 2017-04-17 07:00 | NUR ---
RAP[facility] RESPONSE CALLED AT 0625. PT HARD TO RESPOND TO VERBAL COMMANDS & HEAD SLUMPED FORWARD. UNABLE TO FOLLOW DIRECTION. RESPOND TO STERNAL RUB. VITAL SIGNS [id number] BP 92/68 MANUAL. PULSE OX 99%. BLOOD SUGAR 130. PT ASSISTED BACK TO ROOM & INTO HER BED FOR ASSESSMENT. PT DISCHARGED @ 0640 WITH CHANGE IN MENTAL STATUS. PT LEFT UNIT VIA BED.
--- NOTE | 2017-04-17 08:22 | NUR ---
PHYSICAL THERAPY PAtient transferred to ICCU. Will need new orders when medically apprppriate. Thank you for this referral. Nori Farah,PT
--- NOTE | 2017-04-17 08:24 | NUR ---
PHYSICAL THERAPY CO-SIGN I approve of the Phyical Therapy notes written above. VIR[place] RAYMOND PT
[2017-04-17] MEDS ORDERED: GEODON20 MG PO (09:35)
[2017-04-17] MEDS ORDERED: DEPAKOTE SPRIN125 MG PO (09:36)
[2017-04-17] MEDS ORDERED: ARICEPT10 M1 PO (09:37)
[2017-04-17] MEDS ORDERED: Depakote Sprin125 MG PO (09:38)
[2017-04-17] MEDS ORDERED: NAMENDA10 MG PO (09:39)
[2017-04-17] MEDS ORDERED: REMERON15 M2 PO (09:39)
[2017-04-17] MEDS ORDERED: RISPERDAL0.25 MG PO ×2 (09:40→09:41)
[2017-04-17] MEDS ORDERED: SEPTDS PO (09:42)
== END 2017-04-17 06:42 | disposition short-term general hospital (02) | DRG 885 ==
LOC: 3N 16:42
PROVIDERS: Student in an Organized Health Care Education/Training Program; ADMIT Psychiatry & Neurology Psychiatry
DX: F33.3 Major depressive disorder, recurrent, severe with psychotic symptoms (principal); E11.9 Type 2 diabetes mellitus without complications; G30.9 Alzheimer's disease, unspecified; F01.51 Vascular dementia, unspecified severity, with behavioral disturbance; F23 Brief psychotic disorder; F02.81 Dementia in other diseases classified elsewhere, unspecified severity, with behavioral disturbance; E03.9 Hypothyroidism, unspecified; E78.5 Hyperlipidemia, unspecified; F41.9 Anxiety disorder, unspecified; K44.9 Diaphragmatic hernia without obstruction or gangrene; M19.90 Unspecified osteoarthritis, unspecified site; E55.9 Vitamin D deficiency, unspecified; K21.9 Gastro-esophageal reflux disease without esophagitis; I10 Essential (primary) hypertension; E66.9 Obesity, unspecified; Z68.24 Body mass index [BMI] 24.0-24.9, adult; Z84.89 Family history of other specified conditions; Z88.8 Allergy status to other drugs, medicaments and biological substances; Z79.84 Long term (current) use of oral hypoglycemic drugs; Z79.899 Other long term (current) drug therapy

== ENCOUNTER 2017-04-17 07:24 | Inpatient (IN) | payer MEDICARE, OTHER ==
[~2017-04-17] VITALS: Ht 167.6 cm; Wt 69.4 kg
[2017-04-17 07:00] VITALS: BP 94/58
--- NOTE | 2017-04-17 07:00 | NUR ---
A 76 year old female admitted to ICCU, under the services of JANINA Gamble DO with a diagnosis of acute encephalopathy. Chief complaint is rapid response on bhu. Patient arrived via bed from [place]. Monitor applied. Initial assessment completed. Vital signs taken and recorded. JANINA GAMBLE DO notified of admission to the unit. Orders received. See assessment for past medical history, medications and allergies. Patient and/or family oriented to unit. [facility] ICCU visitation policy reviewed. Clothing/patient valuable form completed. JOSE RODGERS
[~2017-04-17 07:24] MED LIST: ATIVAN0.5 MG PO; BISCOLAX10 M1 R; CYMBALTA30 MG PO; CYMBALTA60 MG PO; GLUCOPHAGE500 MG PO; LEVOXYL88 MCG PO; OMEPRAZOLE40 MG PO; TOPROL XL100 MG PO; VITAMIN D50000 UNIT PO; ZESTRIL20 MG PO
[2017-04-17 07:40] LABS: BASO # 0.1 10*3/uL (0.0-0.1); BASO % 1.3 % (0.0-1.0); EOS # 0.1 10*3/uL (0.0-0.4); EOS % 0.8 % (1.0-4.0); HEMATOCRIT 38.7 % (37.0-47.0); HEMOGLOBIN 12.9 g/dl (12.0-16.0); LYMPH # 1.1 10*3/uL (1.3-4.4); LYMPH % 13.4 % (27.0-41.0); MEAN CELL VOLUME 85.6 fl (81.0-99.0); MEAN CORPUSCULAR HGB 28.5 pg (27.0-31.0); MEAN CORPUSCULAR HGB CONC 33.3 g/dl (33.0-37.0); MEAN PLATELET VOLUME 9.8 fl (9.6-12.3); MONO % 12.6 % (3.0-9.0); NEUT # 5.5 10*3/uL (2.3-7.9); NEUT % 69.7 % (47.0-73.0); PLATELET COUNT AUTOMATED 197 10*3/uL (130-400); RED BLOOD COUNT 4.52 10*6/uL (4.10-5.10); RED CELL DISTRI WIDTH 13.3 % (0-14.5); WHITE BLOOD COUNT 7.9 10*3/uL (4.8-10.8)
[2017-04-17 07:51] LABS: ALBUMIN 3.4 gm/dl (3.1-4.5); CREATININE 1.08 mg/dL (0.55-1.02); TOTAL PROTEIN 6.9 gm/dL (6.4-8.2)
[2017-04-17 08:00] VITALS: BP 128/56
[2017-04-17 08:12] LABS: ABG BASE EXCESS -0.9 mmol/L (-2.0-2.0); ABG HCO3 22.6 mmol/l (22-26); ABG O2 SATURATION 99.2 % (95-97); ARTERIAL BLOOD GAS PCO2 36.1 mmHg (35-45); ARTERIAL BLOOD GAS PH 7.415 (7.35-7.45)
--- NOTE | 2017-04-17 08:23 | NUR ---
PHYSICAL THERAPY PAtient transferred from [facility] to [facility]. Will need new orders when medically apprppriate. Thank you. Nori Farah,PT
--- NOTE | 2017-04-17 08:38 | NUR ---
DR. DORSEY DOES NOT WANT [facility] OR [facility] FOR PATIENT. URINE DRUG SCREEN NOT OBTAINED AT THIS TIME.
[2017-04-17] MEDS ORDERED: GEODON20 MG PO (09:35)
[2017-04-17] MEDS ORDERED: DEPAKOTE SPRIN125 MG PO (09:36)
[2017-04-17] MEDS ORDERED: ARICEPT10 M1 PO (09:37)
[2017-04-17] MEDS ORDERED: Depakote Sprin125 MG PO (09:38)
[2017-04-17] MEDS ORDERED: NAMENDA10 MG PO (09:39)
[2017-04-17] MEDS ORDERED: REMERON15 M2 PO (09:39)
[2017-04-17] MEDS ORDERED: RISPERDAL0.25 MG PO ×2 (09:40→09:41)
[2017-04-17] MEDS ORDERED: SEPTDS PO (09:42)
--- NOTE | 2017-04-17 09:43 | NUR ---
PATIENT TO BE TRANSFERED TO [facility] VIA AMBULANCE. DAUGHTER AWARE.
--- NOTE | 2017-04-17 10:31 | NUR ---
ATTEMPTED TO LET DOCTORS KNOW LA 2.7 NO ANSWER [phone]
--- NOTE | 2017-04-17 11:41 | NUR ---
NURSE TO NURSE REPORT GIVEN TO [facility]. AWAITING AMBULANCE FOR TRANSFER.
[2017-04-17 12:00] VITALS: BP 109/60
--- NOTE | 2017-04-17 13:35 | NUR ---
still awaiting transport via [facility].
--- NOTE | 2017-04-17 13:39 | NUR ---
updated [facility] on [facility] not here yet for transport.
--- NOTE | 2017-04-17 14:41 | NUR ---
[facility] HERE AND IS TAKING PATIENT TO [facility].
== END 2017-04-17 14:38 | disposition short-term general hospital (02) | DRG 682 ==
LOC: ICCU 07:24 → 5E 08:00 → ICCU 08:01
PROVIDERS: Student in an Organized Health Care Education/Training Program; ADMIT Internal Medicine
DX: N17.0 Acute kidney failure with tubular necrosis (principal); G93.41 Metabolic encephalopathy; E44.1 Mild protein-calorie malnutrition; F33.9 Major depressive disorder, recurrent, unspecified; E83.41 Hypermagnesemia; D72.810 Lymphocytopenia; E11.9 Type 2 diabetes mellitus without complications; E03.9 Hypothyroidism, unspecified; F41.9 Anxiety disorder, unspecified; E78.5 Hyperlipidemia, unspecified; K21.9 Gastro-esophageal reflux disease without esophagitis; I10 Essential (primary) hypertension; E66.9 Obesity, unspecified; M19.90 Unspecified osteoarthritis, unspecified site; Z88.9 Allergy status to unspecified drugs, medicaments and biological substances; Z79.899 Other long term (current) drug therapy; Z68.24 Body mass index [BMI] 24.0-24.9, adult; Z79.84 Long term (current) use of oral hypoglycemic drugs